=== PATIENT | female | born 1945 | race Caucasian/White ===

== ENCOUNTER 2023-10-18 12:29 | Outpatient (CLI) | payer MEDICARE | END 2023-10-18 12:30 | disposition home or self-care (01) | LOC: ULT 12:29 | PROVIDERS: ATTEND Internal Medicine | DX: I73.9 Peripheral vascular disease, unspecified (principal); I08.8 Other rheumatic multiple valve diseases; R09.89 Other specified symptoms and signs involving the circulatory and respiratory systems; R01.1 Cardiac murmur, unspecified | CPT/HCPCS: 93306; 93880; 93923 ==